=== PATIENT | male | born 1945 | race Caucasian/White ===

== ENCOUNTER 2016-11-22 05:42 | Inpatient (IN) ==
[2016-11-22] MEDS ORDERED: REGLAN ONE (05:45)
[2016-11-22] MEDS ORDERED: PEPCID ONE (05:45)
[2016-11-22] MEDS ORDERED: LR 1,000 ML ONE (05:45)
[2016-11-22] MEDS ORDERED: FLAGYL 1000 MG/NS 1,000 MG/200 ML IVPB IV ONE (06:00)
[2016-11-22] MEDS ORDERED: MEFOXIN 1 GM/D5W 1 GM/50 ML IVPB IV ONE (06:00)
[2016-11-22] MEDS ORDERED: ENTEREG ONE (06:26)
--- NOTE | 2016-11-22 07:33 | Diag Imaging Result Doc PS360 ---
EXAM: CHEST-2 VIEWS HISTORY: preop TECHNIQUE: COMPARISON: 08/22/2016 FINDINGS: The lungs are hyperexpanded. Interval placement of a left subclavian portacatheter. The tip overlies the mid superior vena cava. No pneumothorax. The heart is not enlarged. The pulmonary vessels are small. Increased AP diameter to the chest. There are several old right rib fractures. No pneumonia. IMPRESSION: Emphysema. Electronically signed by John Mann 11/22/2016 7:31 AM
[2016-11-22] MEDS ORDERED: EXPAREL 1.3% ONE (08:59)
[2016-11-22] MEDS ORDERED: MARCAINE 0.25% PF ONE (08:59)
[2016-11-22] MEDS ORDERED: SODIUM CHLORIDE 0.9% 10 ML ONE (08:59)
[2016-11-22] MEDS ORDERED: DIPRIVAN 1% ONE (09:44)
[2016-11-22] MEDS ORDERED: FENTANYL ONE (09:44)
[2016-11-22] MEDS ORDERED: D5 1/2 NS 1,000 ML ONE (10:17)
[2016-11-22] MEDS ORDERED: MORPHINE PCA ONE (10:32)
[2016-11-22] MEDS: MORPHINE ONE ×3 (10:56→15:57)
--- NOTE | 2016-11-22 12:37 | OPERATIVE NOTE ---
PROCEDURE DATE: 11/22/2016 PREOPERATIVE DIAGNOSIS: History of rectal cancer status post radiation and chemotherapy. PROCEDURE: Cystoscopy by Dr. Thompson with placement of bilateral ureteral catheters going to be covered in a separate operative note. Subsequent, low anterior colon resection with 28 mm EEA anastomosis at about 10 cm. SURGEON: Km Scott MD DESCRIPTION OF PROCEDURE: On completion of cystoscopy and placement of bilateral ureteral catheters, the abdomen was broadly prepped and draped in the appropriate manner. The patient was in the exenteration stirrups. A supraumbilical to pubis midline incision was taken sharply down through skin and subcutaneous tissue. Fascia was incised in the midline and the peritoneum was entered. There was no evidence of carcinomatosis. The liver was free of tumor. The omentum was uninvolved with tumor. Examination revealed the tumor to be at the peritoneal reflection with a piece of proximal colon stuck down to the tumor itself. The proximal colon part that was stuck to the tumor was freed up sharply, 3-0 silk stitches were used to omar that area and that area was subsequently incorporated with a low anterior resection. An area proximal to the stitches was divided with a pursestring device. Distal attachments were taken down with the LigaSure instrument or ties of 0 and 2-0 silk. On reaching the tumor, a broader area was excised with removal of several lymph nodes that appeared grossly benign. An area approximately 4 to 5 cm distal to the tumor was subsequently freed up and divided with a TA-45 stapler. Tacking sutures were placed at each lateral border. There was no evidence of bladder involvement. An EEA anastomosis was subsequently performed with 2 good donuts being obtained and a negative Daysi test. The distal margin appeared to be at least 4 to 6 cm distal to the tumor. The abdomen was subsequently deflated. After accounting for all laparotomy sponges, closure was initiated. The omentum was drawn down over the anastomosis. The peritoneum was closed with running #1 Vicryl suture. The fascia was closed with #1 Maxon. Subcutaneous was debrided and the skin was closed with stainless steel clips. Sterile dressings were applied. The patient then had a TAP block from the anesthesiologist for pain control. He was repositioned. The ureteral catheters were removed intact. He was subsequently awakened and extubated in the operating room. Coy catheter was left indwelling. Estimated blood loss for the procedure was 150-200 mL. cc: Km Scott MD
[2016-11-22] MEDS ORDERED: MORPHINE PCA IV PRN (12:48)
[2016-11-22] MEDS ORDERED: SODIUM CHLORIDE 0.9% INJ PRN (12:48)
[2016-11-22] MEDS ORDERED: NARCAN IV PRN (12:48)
[2016-11-22] MEDS ORDERED: ZOFRAN IV PRN (12:48)
[2016-11-22] MEDS ORDERED: BENADRYL IV PRN (12:48)
[2016-11-22] MEDS ORDERED: PHENERGAN IV PRN (12:48)
[2016-11-22] MEDS ORDERED: STERILE WATER INJ. ONE (12:51)
[2016-11-22] MEDS ORDERED: NEOSTIGMINE ONE (12:51)
[2016-11-22] MEDS ORDERED: ZOFRAN ONE (12:51)
[2016-11-22] MEDS ORDERED: EPHEDRINE ONE (12:52)
[2016-11-22] MEDS ORDERED: NORCURON ONE (12:52)
[2016-11-22] MEDS ORDERED: ROBINUL ONE (12:53)
[2016-11-22] MEDS ORDERED: XYLOCAINE-MPF 2% ONE (12:53)
[2016-11-22] MEDS ORDERED: OFIRMEV 1000 MG/ISOTONIC SOLN 1,000 MG/100 ML BOTTLE ONE (12:53)
[2016-11-22] MEDS ORDERED: DECADRON ONE (12:54)
[2016-11-22] MEDS ORDERED: LR 3,000 ML ONE (12:54)
[2016-11-22] MEDS ORDERED: QUELICIN (DOSE) ONE (12:54)
[2016-11-22] MEDS: MEFOXIN 1 GM/NS 1 GM/50 ML IVPB IV SCH ×2 (15:21→23:23)
[2016-11-22] MEDS: LR 1,000 ML IV SCH (15:32)
[2016-11-22] MEDS: D5 1/2 NS 1,000 ML IV SCH ×2 (15:33→23:30)
[2016-11-22] MEDS: FLAGYL 1000 MG/NS 1,000 MG/200 ML IVPB IV SCH ×2 (15:54→22:23)
--- NOTE | 2016-11-22 19:24 | OPERATIVE NOTE ---
PROCEDURE DATE: SURGEON: Benjamin Thompson MD PREOPERATIVE DIAGNOSIS: Colon cancer. POSTOPERATIVE DIAGNOSIS: Colon cancer. PROCEDURE PERFORMED: 1. Cystoscopic exam. 2. Place bilateral ureteral stents. ANESTHESIA: General endotracheal. FINDINGS: Cystoscopic exam: Urethra-greater than 21 Afghan without stricture. Prostate-wide open channel. Minimal hypertrophy of the lateral lobes, elevated bladder neck, length approximately 4 cm. Bladder-normal ureteral orifices bilaterally. Grade 2-3 trabeculations, small cellules and diverticula throughout. No papillary lesions noted. INDICATION FOR PROCEDURE: This 71-year-old male has a history of colon cancer. He is going to undergo low anterior resection and his surgeon requested ureteral stents to facilitate palpation of each ureter. DESCRIPTION OF PROCEDURE: After informed consent was obtained from the patient, him receiving his IV antibiotics, he was taken the main OR, placed in the supine position. General anesthesia via endotracheal tube was achieved. He was then placed in the low lithotomy position and prepped and draped in the usual sterile fashion for cystoscopic exam. A 21-Afghan cystoscope was passed the patient's urethra, prostate, and bladder with findings noted above. A 0.035 ZIPwire was passed through the cystoscope and engaged left ureteral orifice, advanced up into the kidney. A 5-Afghan open ended ureteral catheter was passed over the ZIPwire and up into the ureter. The ureteral catheter was advanced to 24 cm. The wire was removed. The cystoscope was removed and returned to the bladder beside the indwelling stent. The right side was accomplished similarly. After both stents were in place and appeared to be in good position the cystoscope was removed. A 16-Afghan Coy catheter was passed through the patient's urethra, prostate, and bladder without difficulty. 10 mL sterile water were placed in Coy's balloon. The Coy was placed to gravity drain. The open-ended ureteral stents were placed through the Coy catheter to gravity drain. The stents will be removed at the end of the colon surgery. He tolerated the procedure well and was turned over the Dr. Scott in good condition. cc: MD Km Restrepo MD
[2016-11-22] MEDS: PERIDEX MT SCH (22:23)
[2016-11-23 05:41] LABS: HEMATOCRIT 35.7 % (42.0-52.0); HEMOGLOBIN 12.1 g/dL (14.0-18.0); LYMPH# 0.15 X1000 (1.2-3.4); LYMPH% 1.4 % (20.5-51.1); MANUAL DIFF NEEDED? YES; MCH 31.3 PG (27-31); MCHC 33.9 g/dL (33-37); MCV 92.5 FL (81-99); MONO# 0.89 X1000 (0.11-0.59); MONO% 8.2 % (1.7-9.3); MPV 11.1 FL (7.4-10.4); NEUT% 90.4 % (42.2-75.2); PLT 212 X1000 (130-400); RBC 3.86 XMIL (4.7-6.1)
[2016-11-23 05:45] LABS: INR 1.04; PROTIME 10.9 Seconds (9.2-11.7)
[2016-11-23] MEDS: FLAGYL 1000 MG/NS 1,000 MG/200 ML IVPB IV SCH (06:02)
[2016-11-23 06:05] LABS: AGAP 10; BUN 8 mg/dL (8-22); CALCIUM 8.5 mg/dL (8.8-10.2); CHLORIDE 105 mmol/L (98-107); COSMO 284; POTASSIUM 4.4 mmol/L (3.5-5.1); SODIUM 142 mmol/L (136-145); TCO2 27 mmol/L (25-35)
[2016-11-23 06:27] LABS: BILIRUBIN URINE NEGATIVE (NEGATIVE); BLOOD URINE MODERATE (NEGATIVE); COLOR YELLOW; GLUCOSE URINE NEGATIVE (NEGATIVE); LEUKOCYTES URINE MODERATE (NEGATIVE); NITRITE URINE NEGATIVE (NEGATIVE); PROTEIN URINE 30 mg/dL (NEGATIVE); SP GRAVITY URINE 1.021; TURBIDITY URINE CLEAR (CLEAR); URINE MICRO REVIEW NEEDED? NO; URINE SOURCE CATH; UROBILINOGEN URINE NORMAL (NORMAL)
[2016-11-23 06:28] LABS: UR EPITHELIAL CELLS <10 /HPF (<10); URINE BACTERIA NEGATIVE /HPF; URINE RBC TNTC /HPF (<10)
[2016-11-23 07:11] LABS: BANDS 2 % (0-1); LYMPHS 2 % (21-51); MONO 14 % (1-9)
[2016-11-23] MEDS: MEFOXIN 1 GM/NS 1 GM/50 ML IVPB IV SCH (09:06)
[2016-11-23] MEDS: PERIDEX MT SCH ×2 (09:07→20:31)
[2016-11-23] MEDS: ENTEREG PO SCH ×2 (09:08→20:31)
[2016-11-23] MEDS: D5 1/2 NS 1,000 ML IV SCH ×2 (10:43→20:31)
--- NOTE | 2016-11-23 12:40 | CONSULTATION ---
DATE OF CONSULTATION: 11/23/2016 REASON FOR CONSULT: This patient has T3 N0 rectal carcinoma. HISTORY OF PRESENT ILLNESS: The patient is known to us with a T3 N0 rectal carcinoma. He initially had a colonoscopy that revealed a 3-4 cm tumor occupying 75-99% of the rectal circumference about 15-18 cm from the entry causing moderate obstruction. His scan showed no evidence of metastatic disease, so patient received concurrent chemotherapy and radiation and is now admitted per Dr. Km Scott, and has had subsequent low anterior colon resection on 11/22. He also had cystoscopy by Dr. Thompson with placement of bilateral ureteral catheters. The patient is recovering from surgery nicely. His pain is well controlled. He has a [employer] morphine pump. They are getting him out of bed today. He has orders for liquid diet. The patient is stating he is hungry and wants to eat and is anxious to get moving around. LABORATORY DATA: Has been stable. His pathology is currently pending. REVIEW OF SYSTEMS: Negative unless indicated in the HPI. PAST MEDICAL HISTORY: Rectal adenocarcinoma as above. B12 deficiency. Iron deficiency anemia. He is status post [id number] placement. ALLERGIES: There are no known allergies. FAMILY/SOCIAL HISTORY: Noncontributory. Patient denies alcohol, tobacco or illicit drug use. PHYSICAL EXAMINATION: Vital Signs: Stable. Constitutional: Patient is in no acute distress. HEENT: Head is normocephalic, atraumatic. Pupils equal, round, symmetric. Cardiovascular: S1, S2 audible to auscultation with no heaves, lifts, thrills, or murmurs. Pulmonary: Breath sounds clear to auscultation with normal respiratory effort. Abdomen: His incision has a clean, dry, intact dressing over it. Hypoactive bowel sounds. Abdomen is soft, nontender. : There is a Coy catheter in place draining light yellow urine. Musculoskeletal: Moves all extremities. Neurologic: Alert and oriented x3. Psychiatric: Appropriate to the situation. Skin: No petechiae, ecchymosis or rash. ASSESSMENT AND PLAN: 1. Rectal carcinoma T3 N0, status post low anterior resection per Dr. Scott on the . He is recovering nicely from his surgery. Pathology is pending. We will follow that and also see him outpatient postoperatively, and decide on further management accordingly. 2. Deep vein thrombosis prophylaxis. The patient remains on Lovenox. He also has TEDS and sequential compression devices to bilateral lower extremities. 3. Iron-deficiency anemia. Hemoglobin, hematocrit are stable. 4. Fluid, electrolytes, nutrition: Patient has an order for clear liquids. Would order protein shakes once he is tolerating regular foods to help speed up his healing process. 5. Pain management. Patient is on morphine patient-controlled analgesia pump. Pain is tolerable. Dictated by JOAN Goel for Abelardo Flanagan MD cc: JOAN Goel MD Hugh C. Nabers, MD [facility] CHILDR[facility]'S HOSPITALClarisa
[2016-11-23] MEDS: LR 1,000 ML IV SCH (17:12)
[2016-11-23] MEDS: LOVENOX SUBQ SCH (20:31)
[2016-11-23] MEDS ORDERED: COUMADIN PO SCH (21:00)
[2016-11-24] MEDS: D5 1/2 NS 1,000 ML IV SCH ×2 (06:17→15:45)
[2016-11-24] MEDS ORDERED: NORCO-10 PO PRN (07:53)
[2016-11-24] MEDS ORDERED: D/C PCA XX ONE (07:55)
[2016-11-24] MEDS: COLACE PO SCH ×2 (09:54→20:19)
[2016-11-24] MEDS: ENTEREG PO SCH ×2 (09:55→20:19)
[2016-11-24] MEDS: HEMOCYTE PLUS CAPSULE PO SCH (09:55)
[2016-11-24] MEDS: PERIDEX MT SCH ×2 (09:56→20:19)
[2016-11-24] MEDS ORDERED: DULCOLAX PR ONE (14:13)
[2016-11-24] MEDS: LOVENOX SUBQ SCH (20:19)
[2016-11-25] MEDS: D5 1/2 NS 1,000 ML IV SCH (01:30)
[2016-11-25] MEDS ORDERED: PREPARATION H OINT TOP PRN (02:00)
[2016-11-25 06:01] LABS: MANUAL DIFF NEEDED? NO
[2016-11-25 06:44] LABS: AGAP 12; BASO% 0.1 % (0.0-0.8); BUN 5 mg/dL (8-22); CALCIUM 8.5 mg/dL (8.8-10.2); CHLORIDE 101 mmol/L (98-107); COSMO 276; EOS# 0.03 X1000 (0.0-0.7); EOS% 0.4 % (0.0-10.0); HEMATOCRIT 37.7 % (42.0-52.0); HEMOGLOBIN 12.8 g/dL (14.0-18.0); LYMPH# 0.19 X1000 (1.2-3.4); LYMPH% 2.6 % (20.5-51.1); MCH 31.8 PG (27-31); MCV 93.8 FL (81-99); MONO# 0.86 X1000 (0.11-0.59); MONO% 11.8 % (1.7-9.3); MPV 11.5 FL (7.4-10.4); NEUT% 85.1 % (42.2-75.2); PLT 190 X1000 (130-400); POTASSIUM 3.8 mmol/L (3.5-5.1); RBC 4.02 XMIL (4.7-6.1); SODIUM 140 mmol/L (136-145); TCO2 27 mmol/L (25-35)
[2016-11-25] MEDS: PERIDEX MT SCH ×2 (09:25→21:56)
[2016-11-25] MEDS: ENTEREG PO SCH ×2 (09:25→21:56)
[2016-11-25] MEDS: HEMOCYTE PLUS CAPSULE PO SCH (09:25)
[2016-11-25] MEDS: COLACE PO SCH ×2 (09:25→21:56)
[2016-11-25] MEDS ORDERED: HEPARIN ONE (09:30)
[2016-11-25] MEDS: LOVENOX SUBQ SCH (21:56)
[2016-11-26 08:20] VITALS: BP 117/71
[2016-11-26] MEDS: ENTEREG PO SCH (10:12)
[2016-11-26] MEDS: COLACE PO SCH (10:12)
[2016-11-26] MEDS: HEMOCYTE PLUS CAPSULE PO SCH (10:12)
[2016-11-26] MEDS: PERIDEX MT SCH (10:12)
[2016-11-26] MEDS ORDERED: HEPARIN ONE (10:19)
--- NOTE | 2016-12-01 16:56 | DISCHARGE SUMMARY ---
ADMISSION DATE: 11/22/2016 DISCHARGE DATE: 11/26/2016 DIAGNOSIS: History of rectal carcinoma, status post preoperative chemoradiation. PROCEDURES PERFORMED THIS ADMISSION: 1. Low anterior resection with primary anastomosis. 2. Preoperative cystoscopy with bilateral ureteral catheters was performed. CONSULTATIONS: Dr. Flanagan. HISTORY AND HOSPITAL COURSE: The patient is a 71-year-old white male who previously had a colonoscopy by Dr. Yepez revealing a large carcinoma at about the 15 cm range. There was no obstruction. The patient underwent outpatient port placement, had systemic chemotherapy, as well as pelvic radiation preoperatively. This did shrink the tumor down. A preoperative colonoscopy or flexible sigmoidoscopy revealed the tumor to still be present, but it was shrunk down and more mobilized than it had been previously. Preoperative CT scans prior to treatment reveals some extension posteriorly into the pelvic fascia. At the day of surgery, Dr. Thompson performed cystoscopy with placement of bilateral ureteral catheters. A low anterior resection was performed with a 28 mm EEA anastomosis. The permanent pathology revealed 1 positive lymph node, but satisfactory margins on the resected area. Hospitalization was largely uneventful. Dietary advancements were well tolerated. His wound appeared to be healing nicely. There was no evidence of leak. The patient's dietary advancements were tolerated. He was subsequently allowed home on 11/26/2016 on Colace, multivitamins, and Nunnelly 10. He will be seen in the office in 1 week's time. In view of the single positive node, there may be indications for extension or resumption of chemotherapy in the postoperative period. Otherwise, we will follow the patient with colonoscopies and CT scans, and he will be referred back to Dr. Yepez in 2 to 3 months for a repeat colonoscopy. cc: Km Scott MD
== END 2016-11-26 12:20 | disposition home health service (06) ==
LOC: SURHOLD 05:42 → 4N 12:09
PROVIDERS: ADMIT Surgery; ATTEND Surgery